=== PATIENT | female | born 1965 | race African-American/Black ===

== ENCOUNTER 2018-06-13 13:51 | Outpatient (CLI) | payer OTHER ==
[2016-05-22 07:45] VITALS: BP 91/58
[2018-06-13 14:15] LABS: BASOPHILS % 0.9 % (0.0-1.5); EOSINOPHILS % 2.4 % (0.0-6.8); MEAN CORPUSCULAR HEMOGLOBIN 31.8 pg (28.0-34.0); MONOCYTES % 13.3 % (0.0-11.0); NEUTROPHILS # 3.5 # k/uL (1.4-7.7)
[2018-06-13 14:47] LABS: eGFR (Non-African) > 60
--- NOTE | 2018-06-13 15:10 | Diagnostic Imaging Report ---
<p>Your browser does not support iframes.</p> DILIA CABALLERO [place] [id number] [facility] [address] [place], [place]. [address] Report Submission Date: Jun 13, 2018 3:02:37 PM CDT Patient Study Name: STEPHANIE RED Date: Jun 13, 2018 2:09:56 PM CDT Modality Type: DX Gender: F Description: CHEST 2VIEW : 63 Institution: [facility] Physician: DILIA CABALLERO Examination: PA and lateral chest. History: Evaluate lung collins. COUGH X2 MONTHS Comparison exam: None provided. Findings: PA and lateral views of the chest demonstrates a normal cardiac and mediastinal silhouette. No focal infiltrate. No blunting of the costophrenic margins. Bilateral nipple shadows. Osseous structures are appropriate for age. Impression: No acute pulmonary process. Electronically signed on Jun 13, 2018 3:02:37 PM CDT by: Osito MENDEZ
== END 2018-06-13 13:53 ==
LOC: LAB 13:51
PROVIDERS: ATTEND Family Medicine
DX: R05 Cough (principal)
CPT/HCPCS: 36415; 71046; 80053; 85025

== ENCOUNTER 2018-06-18 15:33 | Outpatient (CLI) | payer OTHER ==
[2016-05-22 07:45] VITALS: BP 91/58
[2018-06-19 11:23] LABS: TOTAL PROTEIN SEE SCANNED RESULTS
== END 2018-06-18 15:38 | disposition home or self-care (01) ==
LOC: LAB 15:33
PROVIDERS: ATTEND Podiatrist Foot & Ankle Surgery
DX: B35.1 Tinea unguium (principal)
CPT/HCPCS: 80076

== ENCOUNTER 2018-06-19 13:40 | Outpatient (CLI) | payer OTHER ==
[2016-05-22 07:45] VITALS: BP 91/58
--- NOTE | 2018-06-19 14:57 | Diagnostic Imaging Report ---
DILIA CABALLERO [facility] [id number] [facility] [address] [place], [place]. [address] Report Submission Date: Jun 19, 2018 2:37:27 PM CDT Patient Study Name: STEPHANIE RED Date: Jun 19, 2018 2:08:13 PM CDT Modality Type: CT\SR Gender: F Description: CT ABD PELVIS W/ CON : 63 Institution: [facility] Physician: DILIA CABALLERO If EXAMINATION: CT ABD PELVIS W/ CON HISTORY: abd pain; problems urinating TECHNIQUE: CT of the abdomen and pelvis was performed with contrast according to standard protocol. COMPARISON: 05/22/2016 FINDINGS: The aorta is atherosclerotic and normal in caliber. The visible lung bases are clear. The heart size is normal. The liver enhances homogeneously. The gallbladder appears normal. The intrahepatic and extrahepatic bile ducts are nondilated. The spleen enhances homogeneously. The pancreas and adrenal glands are normal. The kidneys enhance symmetrically. There is no evidence of renal calculus or hydronephrosis. The distal esophagus and stomach appear normal. The small bowel and colon are normal in caliber without evidence of wall thickening or obstruction. The appendix is not seen. No free air or free fluid is identified in the abdomen. There is no abdominal lymphadenopathy. The urinary bladder is distended with fluid and appears normal. The uterus has been at least partially removed. There is either residual uterus present or a prominent vaginal cuff. There are bilateral ovarian cysts, largest on the right measuring 2.7 cm. No free fluid is seen in the pelvis. Bone windows demonstrate no suspicious lytic or blastic lesions. The visible osseous structures are intact. Degenerative changes are noted in the hips and lower lumbar spine. IMPRESSION: 1. No acute process identified in the abdomen or pelvis. 2. Bilateral ovarian cysts. Electronically signed on Jun 19, 2018 2:37:27 PM CDT by: Eduard MENDEZ
== END 2018-06-19 14:00 ==
LOC: RAD 13:40
PROVIDERS: ATTEND Family Medicine
DX: N83.202 Unspecified ovarian cyst, left side (principal); N83.201 Unspecified ovarian cyst, right side; R10.84 Generalized abdominal pain; R33.9 Retention of urine, unspecified
CPT/HCPCS: 74177; Q9967

== ENCOUNTER 2018-11-28 14:40 | Emergency (ER) | payer OTHER ==
--- NOTE | 2018-11-28 14:54 | ED Physician Documentation ---
General Adult - HISTORIAN Historian: patient - HPI Stated Complaint: spider bite on chin Chief Complaint: Insect Bite Onset: days ago (3) Timing: still present Severity: moderate (08/19) Further Comments: yes (She reports she has a bite on her chin she did see a spider. She states she had swelling and pain and she was seen in the clinic there appears to be some misunderstanding about meds and call in- she did get a steroid injeciton for the bite in the clinic but did not greens picker her meds > she has had chills and aches as well as pain in her chin neck and down into her chest she feels the areas are swollen and more painfult to touch. She has not taken any OTC meds) Last known Well Code/Unknown Code: Unknown - ROS CONST: no problems CVS/RESP: chest pain, cough. denies: shortness of breath GI/: none MS/SKIN/LYMPH: neck pain (from bite area ) NEURO/PSYCH: headache. denies: fainting, dizziness - PAST HX Past History: other (seizure disorder ) Immunizations: UTD Allergies/Adverse Reactions: Allergies Allergy/AdvReac Type Severity Reaction Status Date / Time codeine [Codeine] Allergy Verified 05/22/16 06:14 Home Medications: Ambulatory Orders Medication Instructions Recorded Gabapentin [Neurontin] 600 mg PO TID 05/22/16 Levofloxacin [Levaquin] 500 mg PO DAILY #7 tablet 05/22/16 Omeprazole [Prilosec] 40 mg PO QDAY 05/22/16 Phenytoin Sodium Extended 100 mg PO TID 05/22/16 [Dilantin] Phenytoin [Dilantin] 30 mg PO HS 05/22/16 Promethazine HCl [Phenergan] 25 mg PO Q6H PRN #30 tablet 05/22/16 - SOCIAL HX Smoking History: cigarettes Alcohol Use: none Drug Use: none - FAMILY HX Family History: No - VITAL SIGNS Vital Signs: Vital Signs Temp Pulse Resp BP Pulse Ox 91/58 05/22/16 07:43 - REVIEWED ASSESSMENTS Nursing Assessment Reviewed: Yes Vitals Reviewed: Yes ED Results Lab/Radiology - Radiology Radiology Impressions: Examination: Portable chest History: Evaluate lungs Comparison exam: 13 June 2018 Findings: Single view of the chest demonstrates a normal cardiac and mediastinal silhouette. Lung collins without focal infiltrate. No blunting of the costophrenic margins. Osseous structures are appropriate for age. Impression: No acute pulmonary process. Electronically signed on Nov 28, 2018 3:35:35 PM CDT by: Osito Blair General Adult Physical Exam - PHYSICAL EXAM GENERAL APPEARANCE: no distress EENT: eye inspection normal, no signs of dehydration NECK: normal inspection RESPIRATORY: no resp distress, breath sounds normal, other (mid right upper chest is painful to touch per pt extending down from neck (bite area) ) CVS: reg rate & rhythm, heart sounds normal ABDOMEN: soft, normal bowel sounds, no distension BACK: normal inspection, no CVA tenderness SKIN: other (chin area with redness and one scab/crusted area redness extends from neck/chin to upper chest area with mild redness. Painful to touch ) EXTREMITIES: non-tender, normal range of motion, no evidence of injury, no edema NEURO: oriented X3 Discharge Clincal Impression: Insect bite Qualifiers: Encounter type: subsequent encounter Site of insect bite: head Site of insect bite of head: other part Qualified Code(s): S00.96XD - Insect bite (nonvenomous) of unspecified part of head, subsequent encounter; W57.XXXD - Bitten or stung by nonvenomous insect and other nonvenomous arthropods, subsequent encounter Referrals: Nicki Monte MD [Primary Care Provider] - 2 Days Comments: 1. GO to your pharmacy for your meds 2. Follow up with PCP in 2-4 days 3. Return to ER for any increasing concerns Condition: Stable Disposition: 01 HOME, SELF-CARE Decision to Admit: NO Date of Decison to Admit: 11/28/18 Decision Time: 16:11
[2018-11-28 15:28] LABS: BASOPHILS % 0.7 % (0.0-1.5)
[2018-11-28] MEDS: ASPIRIN 81 MG CHEW TAB PO ONE (15:30)
[2018-11-28] MEDS: 0.9 % SODIUM CHLORIDE 1,000 ML IV ONE (15:35)
[2018-11-28 15:44] LABS: eGFR (Non-African) > 60
[2018-11-28 16:28] VITALS: BP 130/72
--- NOTE | 2018-11-28 18:50 | Diagnostic Imaging Report ---
ANNIE RIOS [facility] [id number] [facility] [address] [place], [place]. [address] Report Submission Date: Nov 28, 2018 3:35:35 PM CDT Patient Study Name: STEPHANIE RED Date: Nov 28, 2018 3:05:34 PM CDT Modality Type: DX Gender: F Description: CHEST 1VIEW : 63 Institution: [facility] Physician: ANNIE RIOS Examination: Portable chest History: Evaluate lungs Comparison exam: 13 June 2018 Findings: Single view of the chest demonstrates a normal cardiac and mediastinal silhouette. Lung collins without focal infiltrate. No blunting of the costophrenic margins. Osseous structures are appropriate for age. Impression: No acute pulmonary process. Electronically signed on Nov 28, 2018 3:35:35 PM CDT by: Osito MENDEZ
== END 2018-11-28 16:18 | disposition home or self-care (01) ==
LOC: ED 14:40
DX: S00.9 Superficial injury of unspecified part of head (principal); W57.XXXD Bitten or stung by nonvenomous insect and other nonvenomous arthropods, subsequent encounter
CPT/HCPCS: 71045; 80053; 82553; 84484; 85025; 87040; 96360; 99282; 99284; J7030; 93005; S1016

== ENCOUNTER 2019-02-24 15:36 | Outpatient (CLI) | payer OTHER ==
--- NOTE | 2019-02-24 16:39 | Diagnostic Imaging Report ---
PATIENT MR#: [id number] PATIENT PATIENT NAME: STEPHANIE RED DATE OF : 1965 REFERRING PHYSICIAN: Nicki Monte EXAM DATE: 02/24/2019 ACCESSION NUMBER: [id number] EXAM DESCRIPTION: SHOULDER 2 VIEWS OR MORE CLINICAL HISTORY: CHRONIC LT SHOULDER PAIN COMPARISON: No study for comparison is available at the time of interpretation. TECHNIQUE: DX left shoulder, 3 views Osseous structures: The osseous structures are normal with no evidence of fracture or dislocation. Th ere is no osseous lesion or periosteal reaction. Joint spaces: The bones are well aligned. There is mild arthrosis is the inferior glenohumeral joint. There is moderate arthrosis of the acromioclavicular joint, with inferior spurring which may impinge on the rotator cuf f. Soft tissues: There is normal appearance of the soft tissues with no radiopaque foreign body seen. 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 Read by: Dr. Jerry Quinteros Transcribed by: Jerry Quinteros Transcribed Date: 02/24/2019 4:38:25 PM Electronically signed by: Dr. Jerry Quinteros Date signed: 02/24/2019 4:38:40 PM
== END 2019-02-24 15:46 ==
LOC: RAD 15:36
PROVIDERS: ATTEND Family Medicine
DX: M25.512 Pain in left shoulder (principal)
CPT/HCPCS: 73030